=== PATIENT | male | born 1975 | race Caucasian/White ===

== ENCOUNTER → 2020-02-09 12:56 | Outpatient (BNVA) | payer MEDICAID, SELFPAY | PROVIDERS: PCP Internal Medicine; Visit Provider Orthopaedic Surgery | DX: S89.92XA Unspecified injury of left lower leg, initial encounter (principal) | CPT/HCPCS: 99212 ==

== ENCOUNTER → 2020-05-10 12:21 | Outpatient (BNVA) | payer MEDICAID, SELFPAY | PROVIDERS: PCP Internal Medicine; Visit Provider Orthopaedic Surgery | DX: S89.92XD Unspecified injury of left lower leg, subsequent encounter (principal) | CPT/HCPCS: 99212 ==

== ENCOUNTER → 2020-07-01 13:06 | Outpatient (BNVA) | payer MEDICAID, SELFPAY | PROVIDERS: Visit Provider Orthopaedic Surgery | DX: S89.92XD Unspecified injury of left lower leg, subsequent encounter (principal); S83.412D Sprain of medial collateral ligament of left knee, subsequent encounter | CPT/HCPCS: 99212 ==

== ENCOUNTER 2021-01-31 12:13 | Outpatient (REF) | payer MEDICAID, SELFPAY ==
--- NOTE | ~2021-01-31 | XR_ITS ---
EXAMINATION: XR UPRIGHT VIEW OF BOTH KNEES, ADDITIONAL LATERAL VIEW OF LEFT KNEE CLINICAL INFORMATION: Pain in the left knee. COMPARISON: X-ray of the left knee January 2019 TECHNIQUE: Upright view of both knees. Lateral view of left knee. FINDINGS: LEFT KNEE: Question small marginal osteophytes about the medial and lateral compartment without joint space narrowing. Patellofemoral compartment unremarkable. No effusion. RIGHT KNEE LIMITED AP UPRIGHT: Question tiny marginal osteophytes about the medial lateral compartments without joint space narrowing. XR/XR knee standing BI IMPRESSION: Left knee: Possible minimal osteoarthritis, new compared to prior. Right knee limited: Possible minimal osteoarthritis.
--- NOTE | ~2021-01-31 | XR_ITS ---
EXAMINATION: XR UPRIGHT VIEW OF BOTH KNEES, ADDITIONAL LATERAL VIEW OF LEFT KNEE CLINICAL INFORMATION: Pain in the left knee. COMPARISON: X-ray of the left knee January 2019 TECHNIQUE: Upright view of both knees. Lateral view of left knee. FINDINGS: LEFT KNEE: Question small marginal osteophytes about the medial and lateral compartment without joint space narrowing. Patellofemoral compartment unremarkable. No effusion. RIGHT KNEE LIMITED AP UPRIGHT: Question tiny marginal osteophytes about the medial lateral compartments without joint space narrowing. XR/XR knee LT 2V IMPRESSION: Left knee: Possible minimal osteoarthritis, new compared to prior. Right knee limited: Possible minimal osteoarthritis.
== END 2021-01-31 12:14 | disposition home or self-care (01) ==
LOC: HO.HOSX 12:13
PROVIDERS: Visit Provider Orthopaedic Surgery
DX: S83.242D Other tear of medial meniscus, current injury, left knee, subsequent encounter (principal)
CPT/HCPCS: 73560; 73565; 99212

== ENCOUNTER → 2021-03-18 11:12 | Outpatient (BNVA) | payer MEDICARE, MEDICAID, SELFPAY | PROVIDERS: Visit Provider Physician Assistant | DX: Z01.818 Encounter for other preprocedural examination (principal); M23.92 Unspecified internal derangement of left knee; S83.242A Other tear of medial meniscus, current injury, left knee, initial encounter | CPT/HCPCS: 99212 ==

== ENCOUNTER 2021-03-23 07:30 | Day surgery (SDC) | payer MEDICARE, MEDICAID, SELFPAY ==
[2021-03-16 14:05] VITALS: BMI 25.0
--- NOTE | 2021-03-22 11:25 | HO.ANESPROP2 ---
Documented by User: Sadaf Crowley NP 03/22/21 11:27 HPI - Anesthesia Eval Consult details Narrative: 45yo M for Left Knee Arthroscopy PMFSH Active Problems Active Problems: All Active Problems (Updated 03/16/21 @ 14:04 by Abiola Escamilla RN) Internal derangement of left knee (Acute) Medial meniscus tear (Acute) MCL sprain of left knee (Acute) Left knee injury (Acute) Past Medical History Medical History Asthma Cystic fibrosis HTN (hypertension) Left knee injury MCL sprain of left knee Family History Family History Father No problems noted. Mother No problems noted. Surgical History Surgical History Hx of right inguinal hernia repair Social History Social History Alcohol intake: never Patient Tobacco Use Status: Never used Tobacco Use of substances other than those prescribed or required for medical reasons: No Have you been hit, kicked, punched, or otherwise hurt by someone within the past year? If so, by whom?: No Are you DNR?: No Advance Directives: No Advance Directives Information Provided: Yes (brochure mailed) Advance Directives on File: No Recently lost weight without trying: No Eating poorly because of decreased appetite: No Nutrition Risks: No Nutritional Risk Poor oral hygiene: No Current occupational status: unemployed Current occupation: right handed Meds Allergies Allergy/AdvReac Type Severity Reaction Status Date / Time No Known Allergies Allergy Unknown UNKNOWN Verified 03/23/21 07:43 [NO KNOWN ALLERGIES] Home Medications Medication Instructions Recorded Confirmed Last Taken Type amitriptyline 10 mg tablet 10 mg PO BEDTIME 07/01/20 Unknown History beclomethasone dipropionate 80 1 inh PO BID 07/01/20 03/23/21 03/23/21 06:30 History mcg/actuation HFA breath activated aerosol clonidine HCl 0.2 mg tablet 0.2 mg PO TID PRN 07/01/20 03/23/21 03/23/21 06:30 History ergocalciferol (vitamin D2) 1,250 1,250 mcg PO 2XW 07/01/20 03/16/21 Unknown History mcg (50,000 unit) capsule fluoxetine 20 mg capsule 20 mg PO QAM 07/01/20 03/16/21 Unknown History fluoxetine 40 mg capsule 40 mg PO QAM 07/01/20 03/16/21 Unknown History hydrochlorothiazide 12.5 mg tablet 12.5 mg PO DAILY 07/01/20 03/16/21 Unknown History hydroxyzine pamoate 50 mg capsule 150 mg PO BEDTIME 07/01/20 03/16/21 Unknown History mdblyw-bfrnicei-jrztmwy 1 cap PO DAILY 07/01/20 03/16/21 Unknown History 20,000-63,000-84,000 unit capsule, delayed rel trazodone 100 mg tablet 200 mg PO BEDTIME 07/01/20 03/16/21 Unknown History Exam Exam Date and Time: March 22, 2021 1125 Height,Weight and Vital Signs: Height 5 ft 7 in Weight 72.575 kg Assessment and Plan Assessment Anesthesia Assessment: Chart Reviewed Documented by User: Ishmael Zuleta MD 03/23/21 08:25 [facility] Past Medical History Medical History Asthma Cystic fibrosis HTN (hypertension) Left knee injury MCL sprain of left knee Family History Family History Father No problems noted. Mother No problems noted. Family history of problems with anesthesia: No Surgical History Surgical History Hx of right inguinal hernia repair History of Problems with Anesthesia: No Social History Social History Alcohol intake: never Patient Tobacco Use Status: Never used Tobacco Use of substances other than those prescribed or required for medical reasons: No Have you been hit, kicked, punched, or otherwise hurt by someone within the past year? If so, by whom?: No Are you DNR?: No Advance Directives: No Advance Directives Information Provided: Yes (brochure mailed) Advance Directives on File: No Recently lost weight without trying: No Eating poorly because of decreased appetite: No Nutrition Risks: No Nutritional Risk Poor oral hygiene: No Current occupational status: unemployed Current occupation: right handed Meds Allergies Allergy/AdvReac Type Severity Reaction Status Date / Time No Known Allergies Allergy Unknown UNKNOWN Verified 03/23/21 07:43 [NO KNOWN ALLERGIES] Home Medications Medication Instructions Recorded Confirmed Last Taken Type amitriptyline 10 mg tablet 10 mg PO BEDTIME 07/01/20 Unknown History beclomethasone dipropionate 80 1 inh PO BID 07/01/20 03/23/21 03/23/21 06:30 History mcg/actuation HFA breath activated aerosol clonidine HCl 0.2 mg tablet 0.2 mg PO TID PRN 07/01/20 03/23/21 03/23/21 06:30 History ergocalciferol (vitamin D2) 1,250 1,250 mcg PO 2XW 07/01/20 03/16/21 Unknown History mcg (50,000 unit) capsule fluoxetine 20 mg capsule 20 mg PO QAM 07/01/20 03/16/21 Unknown History fluoxetine 40 mg capsule 40 mg PO QAM 07/01/20 03/16/21 Unknown History hydrochlorothiazide 12.5 mg tablet 12.5 mg PO DAILY 07/01/20 03/16/21 Unknown History hydroxyzine pamoate 50 mg capsule 150 mg PO BEDTIME 07/01/20 03/16/21 Unknown History gjodaj-mcqunfhk-iagsgsa 1 cap PO DAILY 07/01/20 03/16/21 Unknown History 20,000-63,000-84,000 unit capsule, delayed rel trazodone 100 mg tablet 200 mg PO BEDTIME 07/01/20 03/16/21 Unknown History Exam Airway Mallampati Class: III TM Dist: >3cm Neck ROM: Full Assessment and Plan Assessment Anesthesia Assessment: Anesthesia Plan Discussed Final Anesthetic Review Family History of Problems with Anesthesia: No History of Problems with Anesthesia: No NPO: Yes ASA Class: III Final Preanesthetic Review: No Changes in Pt Med Stat, Meds/Allgs Chart Reviewed, Consent Obtained/Reviewed and Anes Risks/Benef Reviewed Patient Risk: Intermediate Procedure Risk: Low Anesthetic Plan Anesthetic Plan: GA Disposition: Standard PACU
[2021-03-23] VITALS (9 sets, daily range): BP systolic 121–157; BP diastolic 73–96; PULSE 52–65; RESP 16; TEMP 36.1–36.5; O2SAT 97–98
[2021-03-23] MEDS: Lactated Ringers 1,000 ML 100 ML IVCONT (08:09)
--- NOTE | 2021-03-23 09:09 | MHC.SHP ---
Pre-Procedural Eval Section A Date of Service: 03/23/21 The patient is an INPATIENT: No Changes since office visit: Yes Patient answered all questions; No Cold of Flu in the past 2 weeks, No New Medical Problems and No Changes in Medication The History & Physical has been completed within 30 days and I have reviewed it.: Yes Section B Chief Complaint: tear of medial meniscus Allergies: Allergies Allergy/AdvReac Type Severity Reaction Status Date / Time No Known Allergies Allergy Unknown UNKNOWN Verified 03/23/21 07:43 [NO KNOWN ALLERGIES] Plan I have reviewed the history and physical and performed a pertinent physical examination on my patient. No changes have occurred unless specified.
--- NOTE | 2021-03-23 09:09 | PM.OP ---
Brief Operative Note Date of Service: 03/23/21 Pre-op diagnosis: left knee MMT Post-op diagnosis: other (1) left knee MMT 2) left knee medial femoral condyle osteochondral post traumatic defect) Procedure: left knee with partial medial meniscectomy and chondroplasty Implants: none Surgeon: Richard Ferguson MD Anesthesia: GETA Was an Contract Management Specialist used for this Procedure?: Yes Contract Management Specialist: Vijaya Tong Estimated blood loss (mL): 0 Tourniquet time (min): 10 IV fluids (mL): 500 Pathology: none sent Condition: stable Disposition: PACU
--- NOTE | 2021-03-23 09:12 | P.OP_ITS ---
Operative Note Operative Note Date of Service: 03/23/21 Narrative: Pre-op diagnosis: left knee MMT Post-op diagnosis: other (1) left knee MMT 2) left knee medial femoral condyle osteochondral post traumatic defect) Procedure: left knee with partial medial meniscectomy and chondroplasty Implants: none Surgeon: Richard Ferguson MD Anesthesia: GETA Was an Quantitative Manager used for this Procedure?: Yes Quantitative Manager: Vijaya Tong Estimated blood loss (mL): 0 Tourniquet time (min): 10 IV fluids (mL): 500 Pathology: none sent Condition: stable Disposition: PACU Procedure in detail: Patient was brought to the operating room placed supine on the arthroscopic table and prepped and draped in standard sterile fashion. A time-out was called to identify proper site proper procedure proper surgeon and IV antibiotics per weight were administered. I began by exsanguinating the limb and insufflating tourniquet to 300 mm Hg. Then made a standard anterolateral stab incision. The knee was insufflated with water and 30 degree arthroscope was placed atraumatically. There were no patellofemoral changes and the suprapatellar pouch was plane and the gutters were clean. I descended into the medial compartment where I made my medial portal under direct visualization. There was posterior horn/partial root tear of the medial meniscus. The majoprity of the root was intact and there was an area of G3/4 changes of the weight bearing portion of the MFC measuring 10x10 mm. I used a combination of biter and shaver the remove ustable portiaon of the meniscus and the MFC defect. I then examined the notch and I was satisfied that the ACL was intact. The lateral compartment was also examined and was normal.I then removed all instrumentation and closed the portals with skin glue. 25 mL of 2% Marcaine with epinephrine was injected into the joint and the surrounding soft tissues. Patient was then placed in sterile dressing extubated brought recovery room stable condition. There were no known complications.
[2021-03-23] MEDS: oxyCODONE HCl Immed Release 5 MG TABLET 10 MG PO (10:28)
== END 2021-03-23 11:35 | disposition home or self-care (01) ==
PROVIDERS: PCP Internal Medicine; Visit Provider Orthopaedic Surgery
PROC: (CPT 29870; principal; 2021-03-23 09:00)
DX: S83.242A Other tear of medial meniscus, current injury, left knee, initial encounter (principal); M23.92 Unspecified internal derangement of left knee; M23.52 Chronic instability of knee, left knee; X58.XXXA Exposure to other specified factors, initial encounter; Y93.9 Activity, unspecified; Y92.9 Unspecified place or not applicable; Y99.8 Other external cause status; J45.909 Unspecified asthma, uncomplicated; I10 Essential (primary) hypertension; E84.9 Cystic fibrosis, unspecified; Z79.899 Other long term (current) drug therapy; Z79.1 Long term (current) use of non-steroidal anti-inflammatories (NSAID)
CPT/HCPCS: 29881; J0171; J0690; J1100; J2250; J2405; J3010

== ENCOUNTER → 2021-03-31 12:50 | Outpatient (BNVA) | payer MEDICARE, MEDICAID, SELFPAY | PROVIDERS: PCP Internal Medicine; Visit Provider Physician Assistant | DX: S83.249D Other tear of medial meniscus, current injury, unspecified knee, subsequent encounter (principal); M23.92 Unspecified internal derangement of left knee | CPT/HCPCS: 99212 ==

== ENCOUNTER → 2021-05-12 15:12 | Outpatient (BNVA) | payer MEDICARE, MEDICAID, SELFPAY | PROVIDERS: PCP Internal Medicine; Visit Provider Physician Assistant | DX: S83.249D Other tear of medial meniscus, current injury, unspecified knee, subsequent encounter (principal); M23.92 Unspecified internal derangement of left knee | CPT/HCPCS: 99212 ==

== ENCOUNTER → 2021-06-16 12:50 | Outpatient (BNVA) | payer MEDICARE, MEDICAID, OTHER, SELFPAY | PROVIDERS: Visit Provider Physician Assistant | DX: S83.242D Other tear of medial meniscus, current injury, left knee, subsequent encounter (principal); M23.92 Unspecified internal derangement of left knee | CPT/HCPCS: 99212 ==

== ENCOUNTER 2021-07-08 14:00 | Outpatient (RCR) | payer MEDICARE, MEDICAID, SELFPAY ==
--- NOTE | 2021-03-31 15:50 | MHC.PT.EP ---
[facility] [place] [facility] [place] [facility] [place] [facility] [address] Patel Bravo [address] [phone] F: [phone] F: [phone] F: [phone] F: [phone] Physical Therapy Plan of Care Date of Evaluation: Date of Surgery: 03/23/21 Diagnosis: S/P Left knee with partial medial meniscectomy and chondroplasty Assessment: 45 YO MALE REF TO PT S/P Lt MEDIAL MENISCUS REPAIR AND CHONDROPLASTY 03/23/21- HE HAS BEEN NWB Lt UNTIL ORTHO F/U 03/31/21 WHERE Pt NOTED HE CAN TTWB LEFT. OBJECTIVE FINDINGS: ROM DEFICITS IN LEFT HIP/ KNEE/ ANKLE, POST-OP PAIN AND SWELLING LEFT KNEE, AND STRENGTH DEFICITS IN LUMBOPELVIC AND PrOX LEFT LE. FUNCTIONAL LIMITATIONS INCLUDE DECREASED ABILITY TO PERFORM STATIC STANDING, AMBULATION GREATER THAN 10 MINS WITHOUT INCREASED PAIN, DECREASED ABILITY TO PERFORM STAIR NAVIGATION,, LIMITED MEAL PREP/ LAUNDRY- HOUSE CHORES , SLEEP, AND SELF CARE TASKS . Pt IS A VERY GOOD PT CANDIDATE TO GUIDE HER IN HER POST-OP TKR COURSE, ADDRESSING THE ABOVE FINDINGS, PAIN MGMT, AND MAXIMIZING FUNCTIONAL INDEPENDENCE. Frequency and Duration: The patient will be seen 2x WK x 8 WKS Short Term Goals: Pt DEMON PROPER QUAD SET IN 1 WK Pt'S LEFT KNEE PAIN DECREASED TO 2-3/10 IN 2 WKS Pt DEMON WFL AROM HIP EXT AND LEFT ANKLE DF/PF AND AROM LEFT KNEE 0* TO 120* IN 4 WKS (PER PROTOCOL) Pt DEMO IMPROVED / PROGRESSIVE GAIT MECH GRAD W INCR WT BEAR AND THEN W LEAST RESTRICTIVE AD ON LEVEL GROUND AND STAIRS IN 3 WKS Half-Way Goals: Pt INDEP W HEP PROGRESSION AND SELF-SX MGMT STRATEGIES IN 8 WKS Pt RESUME REG ADLs EVIDENT W IMPROVED LEFI SCORE BY 8-10 POINTS IN 8 WKS Pt INCR LEFT LE STRENGTH BY 1 GRADE IN 8 WKS Treatment Plan: Modalities to reduce pain, spasms and effusion. Manual therapy to restore motion and function. Therapeutic exercise to improve strength and flexibility. Neuromuscular re-education for posture and balance. Therapeutic activities to return to functional activities of daily living. Electronically signed by: Leonora Varma PT Please sign and return to therapist. Thank you for your referral.
--- NOTE | 2021-07-12 13:35 | MHC.PT.DC ---
[facility] [place] Office [place] Office [place] Office [address] Patel Bravo [address] [facility] [phone] F: [phone] F: [phone] F: [phone] F: [phone] Physical Therapy Discharge Report Diagnosis: S/P Left knee with partial medial meniscectomy and chondroplasty Date of Surgery: 03/23/21 Date of Evaluation: 03/31/21 Date of Discharge: 07/12/21 Treatments to Date: 21 Cancellations to Date: 0 No Shows to Date: 0 Discharge Status: Improved Function Independent with HEP Discharge Summary: Appropriate for d/c secondary to I with HEP. He is ambulating with normal gait pattern but continues to have short step length and slow self-selected gait speed. Electronically signed by: Dayanna Martinez PT Please sign and return to therapist. Thank you for your referral.
== END 2021-07-12 13:37 | disposition home or self-care (01) ==
LOC: HO.PT 14:00
PROVIDERS: PCP Internal Medicine; Visit Provider Physician Assistant
DX: M23.92 Unspecified internal derangement of left knee (principal); S83.242D Other tear of medial meniscus, current injury, left knee, subsequent encounter
CPT/HCPCS: 97014; 97110; 97116; 97162; 97530

== ENCOUNTER → 2021-08-04 13:40 | Outpatient (BNVA) | payer MEDICARE, MEDICAID, SELFPAY | PROVIDERS: PCP Internal Medicine; Visit Provider Orthopaedic Surgery | DX: M95.8 Other specified acquired deformities of musculoskeletal system (principal); Z98.890 Other specified postprocedural states | CPT/HCPCS: 99212 ==

== ENCOUNTER → 2021-11-04 12:01 | Outpatient (BNVA) | payer MEDICARE, MEDICAID, SELFPAY | PROVIDERS: PCP Internal Medicine; Visit Provider Orthopaedic Surgery | DX: M95.8 Other specified acquired deformities of musculoskeletal system (principal) | CPT/HCPCS: 99212 ==

== ENCOUNTER → 2022-02-03 11:50 | Outpatient (BNVA) | payer MEDICARE, MEDICAID, SELFPAY | PROVIDERS: PCP Internal Medicine; Visit Provider Orthopaedic Surgery | DX: M95.8 Other specified acquired deformities of musculoskeletal system (principal) | CPT/HCPCS: 99212 ==

== ENCOUNTER 2023-02-08 12:10 | Outpatient (REF) | payer OTHER, SELFPAY | END 2023-02-08 12:11 | disposition home or self-care (01) | LOC: HO.HHCL 12:10 | PROVIDERS: Visit Provider Internal Medicine | DX: E84.9 Cystic fibrosis, unspecified (principal) | CPT/HCPCS: 36415; 80048; 80061; 80076 ==

== ENCOUNTER 2024-01-28 08:23 | Outpatient (REF) | payer OTHER, SELFPAY ==
[2024-01-28 11:58] LABS: Alanine Aminotransferase 27 U/L (0-40); Albumin Level 3.8 g/dL (3.5-5.0); Alkaline Phosphatase 73 U/L (39-117); Anion Gap 8 (12-20); Aspartate Amino Transferase 30 U/L (5-37); Bilirubin Direct 0.2 mg/dL (0.0-0.5); Bilirubin Total 0.3 mg/dL (0.0-1.0); Blood Urea Nitrogen 14 mg/dL (9-16); Calcium 8.6 mg/dL (8.4-10.2); Carbon Dioxide 31 mmol/L (22-29); Chloride 106 mmol/L (96-108); Cholesterol 150 mg/dL (<200); Estimated Glomerular Filt Rate > 60; Glucose Random 109 mg/dL (60-115); HDL Cholesterol 36 mg/dL (>40); LDL Cholesterol Calculated 95 mg/dL (<100); Potassium 4.3 mmol/L (3.3-5.1); Sodium 141 mmol/L (135-145); Total Protein 7.8 g/dL (6.5-8.0); Triglycerides 99 mg/dL (<150)
[2024-01-28 13:28] LABS: Reflex LDLD? No
== END 2024-01-28 08:24 | disposition home or self-care (01) ==
LOC: HO.HHCL 08:23
PROVIDERS: Visit Provider Internal Medicine
DX: E84.9 Cystic fibrosis, unspecified (principal); I10 Essential (primary) hypertension
CPT/HCPCS: 36415; 80053; 80061; 82248

== ENCOUNTER 2024-07-03 13:53 | Outpatient (REF) | payer OTHER, SELFPAY ==
--- OUTSIDE RECORDS SUMMARY | 2024-07-03 14:04 | XMS_ITS | Encounter Summary ---
Author Organization [facility] [employer] Address [address] [place] [address] [address] [place] [address] Care Team Providers Care President Of [place] Name Role Phone Beto Marques MD Primary Care Provide r Reason for Visit * Reason Comments Med Refill Encounter Details Date Type Department Care Team (Late st Contact Info) Description 10/26/2022 Refill [facility] MED[facility] [address] [place], [place] [id number] Beto Marques MD [address] [place] [address] Essential hypertension Social History Tobacco Use Types Packs/Day Years Used Date Smoking Tobacco: Never Passive Smoke Exposure: Never Smokeless Tobacco: Never Depression Answer Date Recorded Patient Health Questionnaire-2 Score 0 02/14/2022 Sex and Gender Information Value Date Recorded Sex Assigned at Male 12/05/2021 10:14 AM EDT Legal Sex Male 10:14 AM EDT Gender Identity Male 12/05/2021 10:14 AM EDT Sexual Orientation Straight 12/05/2021 10 :14 AM EDT documented as of this encounter Plan of Treatment Not on file documented as of this encounter Visit Diagnoses Diagnosis Essential hypertension Unspecified essential hypertension documented in this encounter Care Teams President Of [place] Relationship Specialty Start Date End Date Beto Marques MD [address] [place] [address] PCP - General Internal Medicine 12/08/14 documented as of this encounter
[2024-07-03 16:21] LABS: Anion Gap 11 (12-20); Blood Urea Nitrogen 8 mg/dL (9-16); Calcium 9.4 mg/dL (8.4-10.2); Carbon Dioxide 29 mmol/L (22-29); Chloride 103 mmol/L (96-108); Estimated Glomerular Filt Rate > 60; Glucose Random 76 mg/dL (60-115); Potassium 3.4 mmol/L (3.3-5.1); Sodium 140 mmol/L (135-145)
== END 2024-07-03 13:54 | disposition home or self-care (01) ==
LOC: HO.HHCL 13:53
PROVIDERS: Visit Provider Internal Medicine
DX: I10 Essential (primary) hypertension (principal)
CPT/HCPCS: 36415; 80048